=== PATIENT | male | born 1940 | race Caucasian/White ===

== ENCOUNTER 2019-01-14 02:18 | Observation (INO) | payer MEDICARE, BC ==
[~2019-01-14] VITALS: Ht 167.6 cm; Wt 72.7 kg
[2019-01-14] MEDS ORDERED: SYNTHROID125 MCG PO (02:30)
[2019-01-14] MEDS ORDERED: CRESTOR5 MG PO (02:30)
[2019-01-14] MEDS ORDERED: COZAAR50 MG PO ×2 (02:31→15:27)
[2019-01-14] MEDS ORDERED: HYTRIN5 MG PO (02:31)
[2019-01-14] MEDS ORDERED: BAYER CHEWABLE81 MG PO (02:31)
[2019-01-14] MEDS ORDERED: HYDROCHLOROTHIA50 MG PO (02:31)
[2019-01-14] MEDS ORDERED: PROTONIX40 MG PO (02:31)
[2019-01-14 03:03] LABS: BASOPHILS 0.4 % (0-2); EOSINOPHILS 2.2 % (0-7); HEMATOCRIT 41.7 % (42.0-54.0); IMMATURE GRANULOCYTES 0.1 % (0-5); LYMPHOCYTES 18.2 % (15-50); MCH 29.7 pg (26.0-34.0); MCHC 33.6 g/dL (31.0-37.0); MCV 88.5 fL (80.0-100.0); MONOCYTES 7.7 % (2-11); NEUTROPHILS 71.4 % (40-80); PLATELET COUNT 179 10x3/uL (130-400); RBC 4.71 10x6/uL (4.20-6.10); WBC 8.6 10x3/uL (4.8-10.8)
[2019-01-14 03:16] LABS: APTT 25.5 SECONDS (22.8-39.4); INR 1.01 (0.85-1.17); PROTIME 12.8 SECONDS (11.6-15.0)
[2019-01-14 03:22] LABS: ALBUMIN 3.6 g/dL (3.4-5.0); ALKALINE PHOSPHATASE 57 U/L (46-116); ALT (SGPT) 26 U/L (10-68); BILIRUBIN - TOTAL 0.29 mg/dL (0.2-1.3); CALC OSMOLALITY 279 mosm/kg (275-300); CALCIUM 8.9 mg/dL (8.5-10.1); CARBON DIOXIDE 23.3 mmol/L (21.0-32.0); CHLORIDE - SERUM 105 mmol/L (98-107); CREATININE - SERUM 1.1 mg/dL (0.6-1.3); GLUCOSE 124 mg/dL (74-106); PROTEIN - SERUM 6.8 g/dL (6.4-8.2); SODIUM 138 mmol/L (136-145); UREA NITROGEN 20 mg/dL (7-18); eGFR NON AFRICAN AMERICAN 68 mL/min (90-120)
[2019-01-14 03:33] LABS: CKMB 11.4 U/L (0.0-3.6); CREATINE KINASE 465 UL (21-232); MAGNESIUM - SERUM 1.8 mg/dL (1.8-2.4); THYROID STIMULATING HORMONE 29.19 uIU/mL (0.36-3.74); TROPONIN-I < 0.017 ng/mL (0.000-0.060)
[2019-01-14 07:30] VITALS: BP 124/74
--- NOTE | 2019-01-14 07:30 | NUR ---
ASSUMED CARE OF PT. PT RESTING IN BED. A/OX3. SKIN W/D/P. RESP EVEN/UNLABORED. ONLY C/O IS MILD RESENDIZ. VSS. DAI RAC WITH JOHN D/I
--- NOTE | 2019-01-14 07:40 | NUR ---
US TECH AT BS FOR COROTID US
--- NOTE | 2019-01-14 08:08 | NUR ---
REPORT GIVEN TO GREG SMITH BY SBAR FORMAT
[2019-01-14 08:25] VITALS: BP 120/74
[2019-01-14 11:37] VITALS: BP 151/76
[2019-01-14 13:42] VITALS: BP 167/66; BMI 25.8
[2019-01-14 14:23] LABS: CKMB 6.3 U/L (0.0-3.6); TROPONIN-I 0.019 ng/mL (0.000-0.060)
[2019-01-14 14:24] LABS: CREATINE KINASE 346 UL (21-232)
[2019-01-14 14:40] VITALS: Ht 167.6 cm; Wt 72.7 kg
--- NOTE | 2019-01-14 14:44 | NUR ---
CARDIOLOGY AT BEDSIDE FOR CONSULT. PT HAS NO FURTHER SYMPTOMS AND NO ELEVATED TROPONIN. 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 PT HAPPY TO HEAR THIS AND WANTING TO GO HOME ANYWAYS. CL IN REACH. WILL CTM.
[2019-01-14] MEDS ORDERED: SYNTHROID150 MCG PO (15:25)
[2019-01-14] MEDS ORDERED: HYDROCHLOROTH12.5 M1 PO (15:28)
[2019-01-14 15:56] VITALS: BP 149/78
--- NOTE | 2019-01-14 16:42 | EC ---
PATIENT:RADHA CAR DATE OF SERVICE: 01/14/19 SEX: M MEDICAL RECORD: [id number] DATE OF : 36 LOCATION:D.M2 D.210 AGE OF PATIENT: 78 ADMISSION DATE: 01/14/19 REFERRING PHYSICIAN: INTERPRETING PHYSICIAN: SHAN NGO MD ECHOCARDIOGRAM REPORT ECHO CHARGES 4 ECHO COMPLETE Date: 01/14/19 CLINICAL DIAGNOSIS: TIA ECHOCARDIOGRAPHIC MEASUREMENTS (adult normal given) AC root (d.<3.7cm) 3.5 cm LV Septum d (<1.2 cm> 1.5 cm Valve Excursion 1.8 cm LV Septum (systole) 1.9 cm Left Atria (s.<4.0cm> 4.5 cm LVPW d(<1.2cm) 1.4 cm RV (d.<2.3cm) 2.5 cm LVPW (sytole) 1.9 cm LV diastole(<5.6CM) 6.5 cm MV E-F(>70mm/sec) cm LV systole 4.2 cm LVOT Diameter 1.9 cm MV exc.(>10mm) cm Est.ejection fraction (50-75%) % DOPPLER: LVIT cm/sec A 90.0 cm/sec E 72.0 cm/sec LA cm/sec RVSP 38.4 mmHg LVOT 94.0 cm/sec AOP1/2T m/s Asc. Ao 219 cm/sec RVOT 55.0 cm/sec RA cm/sec PA 112 cm/sec AV Gradient Peak 19.2 mmHg AV Mean 8.7 mmHg AV Area 1.2 cm MV Gradient Peak 5.9 mmHg MV Mean 2.1 mmHg MV Area cm COMMENTS: Tire Trucker: 1 SUNIL CAPONEOE Manager Field Services: 1 Dr. Ngo TAPE# PACS Pericardial Effusion N DATE OF SERVICE: FINDINGS: 1. Left ventricular chamber size is dilated. Left ventricular systolic function is mildly reduced, overall ejection fraction 40%. 2. Left atrium is dilated at 4.5 cm. Right atrium and right ventricular chamber sizes are as well mildly dilated. 3. Valvular structures have normal structure and motion. 4. Doppler interrogation reveals trace mitral regurgitation, trace tricuspid regurgitation, no other valvular insufficiency or stenosis. ECHOCARDIOGRAM REPORT [id number] RADHA CAR 5. No evidence of pericardial effusion or left ventricular thrombus. TRANSINT:[id number] Voice Confirmation ID: [id number] DOCUMENT ID: [id number] SHAN NGO MD at 1642 CC: [id number] DICTATION DATE: 01/14/19 1334 COVERSTITCH ELASTIC ATTACHER: 01/14/19 1421 ADM IN [facility] [address] [place] [address]
--- NOTE | 2019-01-14 18:33 | NUR ---
DISCHARGE TEACHING PROVIDED AND PAPERS SIGNED. PT VERBALIZED UNDERSTANDING AND DENIES ANY QUESTIONS OR CONCERNS ALL BELONGINGS COLLECTED AND BAGGED FOR PT. PT IS SITTING UP ON EDGE OF BED AND DRESSED HIMSELF. D/C PTS R.AC PIV WITH CATHETER TIP FULLY INTACT. PT READY TO LEAVE NOW. BROTHER HERE FOR TRANSPORTATION.
--- NOTE | 2019-01-17 08:45 | MORECARE ---
CASE MANAGEMENT DISCHARGE SUMMARY PATIENT: RADHA CAR UNIT: [id number] ADM DATE: 01/14/19 AGE: 78 : 38 SEX: M ROOM/BED: D.2107 AUTHOR: MARV PARIS PHYSICIAN: REFERRING PHYSICIAN: AMY JESSICA MD DATE OF SERVICE: 01/17/19 Discharge Plan Patient Name: RADHA CAR Facility: [facility]:[place] : 1940 Planned Disposition: Home Anticipated Discharge Date: 01/14/19 Discharge Date: 01/14/2019 Expected LOS: 1 Initial Reviewer: [email or web address] Initial Review Date: 01/17/2019 Generated: 01/17/19 9:45 am Patient Name: RADHA CAR Page [id number] at 0845 All edits/amendments must be made on the electronic document DICTATION DATE: 01/17/1945 NOISE TESTER: LARS 01/17/19 0845 RPT#: [id number] DC DATE:01/14/19 STATUS: DIS IN [facility] [address] [place] [address] END OF REPORT
== END 2019-01-14 18:35 | disposition home or self-care (01) ==
LOC: D.ER 02:18 → OBSVTIME 07:47 → D.M2 07:47
PROVIDERS: Emergency Medicine; ADMIT Internal Medicine Nephrology; ATTEND Internal Medicine Nephrology
DX: G45.9 Transient cerebral ischemic attack, unspecified (principal); N17.9 Acute kidney failure, unspecified; E78.5 Hyperlipidemia, unspecified; J44.9 Chronic obstructive pulmonary disease, unspecified; I25.10 Atherosclerotic heart disease of native coronary artery without angina pectoris; E03.9 Hypothyroidism, unspecified; N40.0 Benign prostatic hyperplasia without lower urinary tract symptoms; K21.9 Gastro-esophageal reflux disease without esophagitis; I16.0 Hypertensive urgency

== ENCOUNTER 2019-01-16 04:14 | Observation (INO) | payer MEDICARE, BC ==
[~2019-01-16] VITALS: Ht 167.6 cm; Wt 92.7 kg
[~2019-01-16 04:14] MED LIST: BAYER CHEWABLE81 MG PO; COZAAR50 MG PO; CRESTOR5 MG PO; HYDROCHLOROTH12.5 M1 PO; HYDROCHLOROTHIA50 MG PO; HYTRIN5 MG PO; PROTONIX40 MG PO; SYNTHROID125 MCG PO; SYNTHROID150 MCG PO
--- NOTE | 2019-01-16 04:53 | NUR ---
WARM BLANKET TO PATIENT. FAMILY AT BEDSIDE. NO DISTRESS NOTED.
[2019-01-16 04:55] LABS: BASOPHILS 0.2 % (0-2); EOSINOPHILS 2.1 % (0-7); HEMATOCRIT 41.3 % (42.0-54.0); HEMOGLOBIN 13.8 g/dL (13.5-17.5); IMMATURE GRANULOCYTES 0.1 % (0-5); LYMPHOCYTES 21.6 % (15-50); MCH 29.4 pg (26.0-34.0); MCHC 33.4 g/dL (31.0-37.0); MCV 87.9 fL (80.0-100.0); MEAN PLATELET VOLUME 11.1 fL (7.4-10.4); MONOCYTES 7.2 % (2-11); NEUTROPHILS 68.8 % (40-80); PLATELET COUNT 194 10x3/uL (130-400); RDW 14.2 % (11.5-14.5); WBC 8.6 10x3/uL (4.8-10.8)
[2019-01-16 05:10] LABS: ALBUMIN 3.5 g/dL (3.4-5.0); ALKALINE PHOSPHATASE 54 U/L (46-116); ALT (SGPT) 19 U/L (10-68); CALC OSMOLALITY 282 mosm/kg (275-300); CALCIUM 9.2 mg/dL (8.5-10.1); CARBON DIOXIDE 24.2 mmol/L (21.0-32.0); CHLORIDE - SERUM 104 mmol/L (98-107); CREATININE - SERUM 1.2 mg/dL (0.6-1.3); GLUCOSE 130 mg/dL (74-106); POTASSIUM - SERUM 3.5 mmol/L (3.5-5.1); PROTEIN - SERUM 6.8 g/dL (6.4-8.2); SODIUM 139 mmol/L (136-145); UREA NITROGEN 20 mg/dL (7-18); eGFR NON AFRICAN AMERICAN 62 mL/min (90-120)
[2019-01-16 05:14] LABS: CREATINE KINASE 172 UL (21-232)
[2019-01-16 05:15] LABS: TROPONIN-I < 0.017 ng/mL (0.000-0.060)
[2019-01-16 06:41] VITALS: BP 139/79; BMI 32.9
[2019-01-16 06:48] VITALS: Ht 167.6 cm; Wt 92.7 kg
[2019-01-16 08:10] VITALS: BP 124/81
[2019-01-16 09:57] LABS: APPEARANCE CLEAR (CLEAR); BILIRUBIN NEGATIVE (NEGATIVE); COLOR YELLOW (YELLOW); GLUCOSE NEGATIVE (NEGATIVE); KETONE NEGATIVE (NEGATIVE); NITRITE NEGATIVE (NEGATIVE); PROTEIN TRACE mg/dL (NEGATIVE); UROBILINOGEN NORMAL (NORMAL)
[2019-01-16 09:59] LABS: AMORPHOUS SEDIMENT <1+ /lpf (NONE SEEN); EPITHELIAL CELLS RARE /hpf (0-5); HYALINE CAST 0-5 /lpf (NONE SEEN); MUCUS <1+ /lpf (NONE SEEN); WHITE CELLS - URINE 0-5 /hpf (0-5)
--- NOTE | 2019-01-16 10:02 | NUR ---
NIR SCDS ON. URINE SPECIMEN COLLECTED. TELEMETRY SR. WILL CONT. PLAN OF CARE.
[2019-01-16 13:10] VITALS: BP 117/67
[2019-01-16 16:20] VITALS: BP 122/58
--- NOTE | 2019-01-16 20:00 | NUR ---
INITIAL ROUNDS AND ASSESSMENT COMPLETED. PT RESTING IN BED WITH NO DISTRESS. ALERT/ORIENTED. NEURO CHECKS EVERY 4 HOURS. MONITOR AND CPOC.
[2019-01-17 00:23] VITALS: BP 150/68
[2019-01-17 05:38] VITALS: BP 139/78
[2019-01-17 06:10] LABS: BASOPHILS 0.3 % (0-2); EOSINOPHILS 2.9 % (0-7); HEMATOCRIT 40.4 % (42.0-54.0); HEMOGLOBIN 13.4 g/dL (13.5-17.5); IMMATURE GRANULOCYTES 0.1 % (0-5); LYMPHOCYTES 27.1 % (15-50); MCH 29.5 pg (26.0-34.0); MCHC 33.2 g/dL (31.0-37.0); MEAN PLATELET VOLUME 11.3 fL (7.4-10.4); MONOCYTES 8.2 % (2-11); NEUTROPHILS 61.4 % (40-80); PLATELET COUNT 177 10x3/uL (130-400); RBC 4.54 10x6/uL (4.20-6.10); RDW 14.5 % (11.5-14.5); WBC 7.6 10x3/uL (4.8-10.8)
[2019-01-17 06:30] LABS: CALC OSMOLALITY 279 mosm/kg (275-300); CALCIUM 8.7 mg/dL (8.5-10.1); CARBON DIOXIDE 25.4 mmol/L (21.0-32.0); CHLORIDE - SERUM 105 mmol/L (98-107); GLUCOSE 104 mg/dL (74-106); POTASSIUM - SERUM 4.2 mmol/L (3.5-5.1); SODIUM 139 mmol/L (136-145); UREA NITROGEN 18 mg/dL (7-18); eGFR NON AFRICAN AMERICAN 76 mL/min (90-120)
--- NOTE | 2019-01-17 07:20 | NUR ---
RECIEVED PT IN BED AAOX4 RESP UNLABORED SKIN W/D COLOR WNL PT DENIES ANY NEEDS OR DISCOMFORT NAD NOTED
[2019-01-17 08:47] VITALS: BP 144/83
[2019-01-17 13:02] VITALS: BP 141/72
[2019-01-17 13:05] VITALS: BP 126/67
[2019-01-17 13:06] VITALS: BP 136/82
--- NOTE | 2019-01-17 16:15 | NUR ---
REVIEWED DISCHARGE INSTRUCTIONS WITH PT STATES UNDERSTANDING COPY GIVEN DCD SALINE LOCK TO LAC WITH IV CATHETER INTACT SITE FREE OF REDNESS OR EDEMA PT DISCHARGED HOME LEFT UNIT IN STABLE CONDITION WITH ALL PERSONAL BELONGINGS VIA W/C
--- NOTE | 2019-01-18 08:07 | MORECARE ---
CASE MANAGEMENT DISCHARGE SUMMARY PATIENT: RADHA CAR UNIT: [id number] ADM DATE: 01/16/19 AGE: 78 : 38 SEX: M ROOM/BED: D.2116 AUTHOR: MARV PARIS PHYSICIAN: REFERRING PHYSICIAN: AMY JESSICA MD DATE OF SERVICE: 01/18/19 Discharge Plan Patient Name: RADHA CAR [facility] [facility] 1940 Planned Disposition: Home Anticipated Discharge Date: 01/17/19 Discharge Date: 01/17/2019 Expected LOS: 1 Initial Reviewer: [email or web address] Initial Review Date: 01/18/2019 Generated: 01/18/19 9:07 am Patient Name: RADHA CAR Page [id number] at 0807 All edits/amendments must be made on the electronic document DICTATION DATE: 01/18/19805 INTEGRATION SOLUTION ARCHITECT: DM 01/18/19 08 RPT#: [id number] DC DATE:01/17/19 STATUS: DIS IN [facility] [address] [place] [address] END OF REPORT
--- NOTE | 2019-01-18 08:14 | MORECARE ---
CASE MANAGEMENT DISCHARGE SUMMARY PATIENT: RADHA CAR UNIT: [id number] ADM DATE: 01/16/19 AGE: 78 : 38 SEX: M ROOM/BED: D.2116 AUTHOR: MARV PARIS PHYSICIAN: REFERRING PHYSICIAN: AMY JESSICA MD DATE OF SERVICE: 01/18/19 Discharge Plan [facility]: RADHA [facility] [facility] 1940 Planned Disposition: Home Anticipated Discharge Date: 01/17/19 Discharge Date: 01/17/2019 Expected LOS: 1 Initial Reviewer: [email or web address] Initial Review Date: 01/18/2019 Generated: 01/18/19 9:14 am Patient Name: RADHA CRA Page [phone] at 0814 All edits/amendments must be made on the electronic document DICTATION DATE: 01/18/19812 HAND CLIPPER: LARS 01/18/19812 RPT#: [id number] DC DATE:01/17/19 STATUS: DIS IN [facility] [address] [place] [address] END OF REPORT
== END 2019-01-17 16:15 | disposition home or self-care (01) ==
LOC: D.ER 04:14 → D.EDHOLD 05:37 → OBSVTIME 05:37 → D.M2 06:16
PROVIDERS: Family Medicine; ADMIT Internal Medicine Nephrology; ATTEND Internal Medicine Nephrology
DX: R55 Syncope and collapse (principal); Z86.73 Personal history of transient ischemic attack (TIA), and cerebral infarction without residual deficits; N17.9 Acute kidney failure, unspecified; I10 Essential (primary) hypertension; E78.5 Hyperlipidemia, unspecified; J44.9 Chronic obstructive pulmonary disease, unspecified; I25.10 Atherosclerotic heart disease of native coronary artery without angina pectoris; E03.9 Hypothyroidism, unspecified; N40.0 Benign prostatic hyperplasia without lower urinary tract symptoms; I65.23 Occlusion and stenosis of bilateral carotid arteries